=== PATIENT | female | born 1980 | race Caucasian/White ===

== ENCOUNTER 2020-10-05 17:22 | Inpatient (IN) | payer OTHER ==
[~2020-10-05] VITALS: Ht 177.8 cm; Wt 165.6 kg
[2020-10-05 17:46] VITALS: BP 146/97
[2020-10-05 18:11] LABS: URINE BILIRUBIN NEGATIVE (Negative); URINE BLOOD 3+ (Negative); URINE CLARITY CLEAR; URINE COLOR YELLOW; URINE GLUCOSE-RANDOM* NEGATIVE (Negative); URINE KETONES NEGATIVE (Negative); URINE LEUKOCYTES-REFLEX NEGATIVE (Negative); URINE NITRITE-REFLEX NEGATIVE (Negative); URINE PROTEIN (DIPSTICK) 1+ (Negative); URINE SPECIFIC GRAVITY >= 1.030 (1.005-1.035)
[2020-10-05 18:24] LABS: SQUAMOUS >10 Many /LPF (0-3)
[2020-10-05 18:25] LABS: BACTERIA-REFLEX None Seen /HPF (None Seen); CRYSTALS None Seen /LPF (None Seen); HYALINE CASTS >10 Many /LPF (None Seen); MUCUS >6 Heavy strn/LPF (None Seen); URINE RBC 0-2 Rare /HPF (0-2); URINE WBC-REFLEX 0-5 Rare /HPF (0-5)
[2020-10-05 19:25] LABS: EOSINOPHILS 0.5 % (0.0-3.0)
[2020-10-05 19:27] LABS: ABSOLUTE NEUTROPHILS 6.5 thou/uL (1.4-8.2); MCH 18.7 pg (26.0-34.0); MCHC 29.5 g/dL (28.0-37.0); MCV 63.2 fL (80.0-100.0); MONOCYTES 5.9 % (1.0-8.0); PLATELET COUNT 308 thou/uL (150-400); POLYS 74.6 % (36.0-66.0); RBC 2.83 mil/uL (4.20-5.00); RDW 18.1 % (10.5-14.5); WBC 8.7 thou/uL (4.0-11.0)
[2020-10-05 19:35] LABS: HEMATOCRIT 17.9 % (37.0-47.0); HEMOGLOBIN 5.3 gm/dL (12.0-15.0)
[2020-10-05 19:39] LABS: ANION GAP 13 mmol/L (7-16); BUN 15 mg/dL (7-18); CALCIUM 8.9 mg/dL (8.5-10.1); CHLORIDE 99 mmol/L (98-107); CO2 24 mmol/L (21-32); CREATININE 1.1 mg/dL (0.6-1.0); GLUCOSE 138 mg/dL (74-106); POTASSIUM 3.9 mmol/L (3.5-5.1); SODIUM 136 mmol/L (136-145)
[2020-10-05 19:49] LABS: ALBUMIN 3.5 g/dL (3.4-5.0); MAGNESIUM 2.4 mg/dL (1.8-2.4); SGOT 32 U/L (15-37); SGPT 37 U/L (30-65); TOTAL BILIRUBIN 0.7 mg/dL (0.2-1.0); TOTAL PROTEIN 7.9 g/dL (6.4-8.2); TROPONIN-I <0.06 ng/mL (<0.06)
[2020-10-05 20:51] VITALS: BP 146/97
[2020-10-05 21:13] VITALS: BP 143/87
[2020-10-05 21:21] VITALS: BP 133/82
[2020-10-05 21:33] LABS: % SATURATION 3 % (20-39); IRON 12 ug/dL (50-170); TIBC 365 ug/dL (250-450)
[2020-10-06 00:03] VITALS: BP 105/62; BP 109/64
--- NOTE | 2020-10-06 02:41 | NUR ---
PT WAS ADMITTED TO THE UNIT FROM THE ER IN A STABLE CONDITION.ADMISSION HX,EDUCATION AND ASSESSMENT COMPLETED.PT'S HGB LOW,BLOOD TRANSFUSION STARTED,NO RXN NOTED SO FAR.PT SLEEPING ON HER BED AT THIS TIME.CALL LIGHT WITHIN REACH.
[2020-10-06 03:30] VITALS: BP 109/64
[2020-10-06 05:51] LABS: WBC 6.3 thou/uL (4.0-11.0)
[2020-10-06 05:53] LABS: MCH 20.7 pg (26.0-34.0); MCHC 31.5 g/dL (28.0-37.0); MCV 65.7 fL (80.0-100.0); RBC 2.56 mil/uL (4.20-5.00); RDW 19.6 % (10.5-14.5)
[2020-10-06 05:58] LABS: HEMATOCRIT 16.8 % (37.0-47.0); HEMOGLOBIN 5.3 gm/dL (12.0-15.0)
[2020-10-06 05:59] LABS: CALCIUM 8.3 mg/dL (8.5-10.1); CREATININE 0.9 mg/dL (0.6-1.0); POTASSIUM 4.1 mmol/L (3.5-5.1)
--- NOTE | 2020-10-06 07:20 | EKG ---
[address] [address] ELECTROCARDIOGRAM REPORT Name: NANY DUNCAN Room #: 437-P ADM IN M.R.#: [id number] Admission: 10/05/20 Attend Phys: Adalberto Braga MD Discharge: Date of : 84 Report #: [id number] [facility] ED Test Date: 2020-10-05 Test Time: 18:33:27 Pat Name: NANY DUNCAN Department: Room: [facility] Gender: F Edger Automatic: CHRISTIE : 1980 Requested By: Scot Mancilla Order Number: [id number] : Minor Leos Measurements Intervals [place] Rate: 106 P: 37 DC: 172 QRS: 3 QRSD: 83 T: 73 QT: 340 QTc: 452 Interpretive Statements Sinus tachycardia No previous ECG available for comparison Electronically Signed On 10-06-2020 7:20:39 [employer]YSICAL SCIENCES PROFESSOR by Minor Leos [email or web address] <ELECTRONICALLY SIGNED> By: Minor Leos MD, [facility] 10/06/20 0720 1833 1833 Minor Leos MD, FACC /EPI
[2020-10-06 07:24] VITALS: BP 114/58
[2020-10-06 09:00] VITALS: BP 118/60; BP 120/62; BP 121/61; BP 122/64; BP 124/64
--- NOTE | 2020-10-06 09:08 | NUR ---
Assess due to pt admit with anemia, excessive menstrual bleeding, Hgb 5.3. Has required transfusion. Appetite down, and mild wt loss 2-13 lb. Extreme class III obesity. Continue regular diet and follow for intake improvement as anemia being treated. Low nutrition risk
--- NOTE | 2020-10-06 10:26 | NUR ---
Assumed care of pt at 0700. Pt a&ox4. Denies pain. Second unit of blood infusing. Will infuse another unit of blood (3rd unit total) and recheck H&H. Hematology and gynecology consulted. Family at bedside. Call light within reach. Will continue to monitor.
[2020-10-06 14:03] VITALS: BP 118/60; BP 122/66; BP 122/70; BP 128/62; BP 130/78
[2020-10-06] MEDS ORDERED: LYSTEDA650 MG PO (14:15)
[2020-10-06 17:51] LABS: HEMATOCRIT 23.5 % (37.0-47.0)
[2020-10-06 17:55] LABS: HEMOGLOBIN 7.3 gm/dL (12.0-15.0)
[2020-10-06 18:51] VITALS: BP 137/87
[2020-10-07] VITALS (7 sets, daily range): BP systolic 102–155; BP diastolic 62–94
--- NOTE | 2020-10-07 02:15 | NUR ---
PT STATED THAT SHE FELT BETTER NOW THAN SHE DID ON ADMIT AT THE START OF SHIFT.PT DENIED PAIN SO FAR.NO CONCERNS NOTED.PT LOOKING FORWARD TO BE DC'D LATER IN THE DAY.CALL LIGHT WITHIN REACH.
[2020-10-07 05:55] LABS: HEMATOCRIT 22.6 % (37.0-47.0)
[2020-10-07] MEDS ORDERED: SYNTHROID75 MCG PO (12:26)
--- NOTE | 2020-10-07 18:30 | NUR ---
ASSUMED CARE OF PATIENT AT 0715, PATIENT ALERT AND ORIENTED X 4. PATIENT UP AD MICHELLE. PATIENT DENIES PAIN THIS SHIFT. PATIENT RECEIVED 2 BLOOD TRANSFUSIONS YESTERDAY, TODAY HGB 7.0, DR ROUSE HERE TO SEE THE PATIENT, WILL ORDER 1 UNIT OF BLOOD TO BE GIVEN THIS SHIFT, AND PATIENT CAN DISCHARGE AFTER BLOOD FINISHED. NEW IV PLACE BY ER NURSE/FRANNY/RN, LEFT FOREARM. BLOOD FINISHED AT 1745. LEFT FOREARM IV REMOVED, ALL DISCHARGE PAPERWORK AND ALL PERSONAL BELONGINGS SENT WITH THE PATIENT.
== END 2020-10-07 18:00 | disposition home or self-care (01) | DRG 760 ==
LOC: ER 17:22 → 4S 20:26 → EROBS 20:26 → 4S 21:22
PROVIDERS: Emergency Medicine; Hospitalist; Nurse Practitioner; Nurse Practitioner Family; ADMIT Hospitalist; ATTEND Hospitalist
PROC: 30233N1 Transfusion of Nonautologous Red Blood Cells into Peripheral Vein, Percutaneous Approach (ICD-10-PCS; principal; 2020-10-05)
DX: N93.9 Abnormal uterine and vaginal bleeding, unspecified (principal); D62 Acute posthemorrhagic anemia; N92.0 Excessive and frequent menstruation with regular cycle; Z88.0 Allergy status to penicillin; Z88.2 Allergy status to sulfonamides; Z82.3 Family history of stroke; Z82.49 Family history of ischemic heart disease and other diseases of the circulatory system; Z80.8 Family history of malignant neoplasm of other organs or systems; Z23 Encounter for immunization; Z79.899 Other long term (current) drug therapy
CPT/HCPCS: 10195